=== PATIENT | male | born 1960 | race Caucasian/White ===

== ENCOUNTER → 2020-11-25 12:16 | Outpatient (CLI) | payer OTHER, SELFPAY ==
--- NOTE | ~2020-11-25 | XR_ITS ---
XR chest 2V DATE: 11/25/2020 12:29 INDICATION: Cough. Shortness of breath. TECHNIQUE: 2 views COMPARISON: 08/13/2018 PA and lateral chest FINDINGS: Heart size is normal. No hilar or mediastinal enlargement. No pulmonary infiltrate or conso lidation, pleural effusion or pulmonary vascular congestion or pneumothorax is detected. Included ske letal structures are unremarkable. IMPRESSION: No active cardiopulmonary disease Reviewed, dictated and finalized at location A.
== END ==
PROVIDERS: PCP Family Medicine; Visit Provider Family Medicine
DX: R05 Cough (principal)
CPT/HCPCS: 71046

== ENCOUNTER → 2021-07-19 10:22 | Outpatient (CLI) | payer OTHER, SELFPAY ==
--- NOTE | ~2021-07-19 | XR_ITS ---
EXAM: XR hip RT 2V w AP pelvis HISTORY: M25.559 - Pain in unspecified hip M25.559 - Pain in unspecified hip COMPARISON: None available FINDINGS: Normal mineralization. No fracture or dislocation. Mild degenerative lumbar changes. Mild enthesopathy of muscular origins off the iliac bones and ischial tuberosities. Mild bilateral superio r hip joint space narrowing and sclerosis. Subcortical cyst in the left femoral neck. IMPRESSION: Mild right hip osteoarthritis. Reviewed, dictated and finalized at location K.
== END ==
PROVIDERS: Visit Provider Physician Assistant Medical
DX: M16.11 Unilateral primary osteoarthritis, right hip (principal)
CPT/HCPCS: 73502

== ENCOUNTER → 2021-11-11 16:47 | Outpatient (CLI) | payer OTHER, SELFPAY ==
--- NOTE | ~2021-11-11 | MR_ITS ---
EXAMINATION: MR hip RT wo con DATE: 11/11/2021 17:51 INDICATION: Right hip pain TECHNIQUE: Magnetic resonance imaging (MRI) of the right hip was performed without intravenous contr ast. Sequences included full-field axial PD-weighted FS FSE and T1-weighted FSE, coronal of the pelvi s with PD-weighted FS FSE, T2-weighted FSE and T1-weighted FSE, small field of view of the right hip with axial PD-weighted FS FSE, sagittal PD-weighted FS FSE, coronal PD-weighted FS FSE and coronal T2 weighted FSE. Additional radial T1-weighted FGR oriented orthogonal to the acetabular rim were obt ained for evaluation of the labrum. COMPARISON: None FINDINGS: Bones/labrum/cartilage: Mild lower lumbar levocurvature. Alignment is otherwise normal. Partially lumbarized S1 segment with 5 more cephalad nonrib-bearing lumbar segments. Mild lower lumbar spondylosis with mild disc height l oss at L4-L5 through L5-S1. No fracture, avascular necrosis or pathologic marrow replacing process. T here is bilateral decreased anterosuperior femoral head/neck offset which can predispose towards cam- type femoral acetabular impingement. Mild cystic change at the left anterosuperior femoral head neck junction which could also be seen with impingement. There is a tear at the anterosuperior right aceta bular labrum. There is mild osteoarthritis at the right hip with nonuniform partial-thickness cartila ge loss most prominent at the anterosuperior right acetabulum where there is deep chondral fissuring with mild underlying edema-like marrow signal change. There are small marginal osteophytes along the posterior right femoral head as well as along the posterior acetabulum. Fluid: Symmetric physiologic amount of fluid within both hip joints. Soft tissues: Normal and symmetric muscle bulk and signal in the pelvis and visualized proximal thighs. The iliopso as, gluteal and proximal hamstring tendons are normal. Bilateral fat-containing inguinal hernias, lef t greater than right with small bilateral indirect components with additional small direct component on the left. Small bilateral hydroceles. Limited evaluation of visceral organs of the pelvis is unrem arkable. No pathologically enlarged pelvic/inguinal lymphadenopathy. IMPRESSION: 1. Mild right hip osteoarthritis with labral tear and high-grade chondromalacia along the anterosuper ior right acetabulum. 2. Small bilateral fat-containing indirect inguinal hernias and additional small fat-containing direc t left inguinal hernia. Reviewed, dictated and finalized at location A. IMPRESSION: 1. Mild right hip osteoarthritis with labral tear and high-grade chondromalacia along the anterosuperior right acetabulum. 2. Small bilateral fat-containing indirect inguinal hernias and additional smal l fat-containing direct left inguinal hernia.
== END ==
PROVIDERS: PCP Family Medicine; Visit Provider Nurse Practitioner Family
DX: M16.11 Unilateral primary osteoarthritis, right hip (principal)
CPT/HCPCS: 73721

== ENCOUNTER 2022-09-01 13:14 | Emergency (ER) | payer OTHER, SELFPAY ==
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
[2022-09-01 13:17] VITALS: BP 136/82; PULSE 77; RESP 16; TEMP 36.4; O2SAT 100
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
[2022-09-01] MEDS: ACETAMINOPHEN 500 MG TABLET 1000 MG PO (14:44)
[2022-09-01] MEDS: IBUPROFEN 600 MG TABLET PO (14:44)
--- NOTE | 2022-09-01 14:53 | ECG_ITS ---
Measurements Intervals [place] Rate: 73 P: 47 [place]: 155 QRS: 26 QRSD: 92 T: 9 QT: 383 QTc: 423 Interpretive Statements SINUS RHYTHM POSSIBLE LEFT ATRIAL ENLARGEMENT ST ELEVATION IN LAT/HIGH LAT LEADS- CONSIDER REPOLARIZATION ABNORMALITY BORDERLINE ECG COMPARED TO ECG 08/13/2018 16:21:12 NO SIGNIFICANT CHANGES Electronically Signed On 09-01-2022 18:30:18 CDT by Orlando Echevarria D.O.
[2022-09-01] MEDS: SODIUM CHLORIDE 0.9% IV 1,000 ML 999 ML IV CONT (15:13)
[2022-09-01 15:25] LABS: Basophils Absolute Auto 0.1 K/mm3 (0.0-0.1); Basophils Percent Auto 0.8 % (0.2-1.2); Eosinophils Absolute Auto 0.1 K/mm3 (0-0.3); Eosinophils Percent Auto 0.6 % (0-4.4); Hematocrit 50.7 % (42.0-52.0); Hemoglobin 17.3 g/dL (14.0-18.0); Immature Granulocyte Absolute 0.04 K/mm3 (0.00-0.031); Immature Granulocyte Percent A 0.4 % (0-0.5); Lymphocytes Percent Auto 18.5 % (18.3-44.2); Mean Corpuscular HGB Conc 34.1 g/dl (32-36); Mean Corpuscular Hemoglobin 30.6 pg (26-34); Mean Corpuscular Volume 89.7 fl (80-100); Mean Platelet Volume 9.3 fl (7.4-10.4); Monocytes Absolute Auto 0.7 K/mm3 (0.1-0.6); Monocytes Percent Auto 6.7 % (2.6-8.5); Neutrophils Absolute Auto 7.5 K/mm3 (1.3-6.7); Platelet Count Result 300 k/mm3 (150-375); Red Blood Count 5.65 M/mm3 (4.6-6.20); Red Cell Distribution Width 12.5 % (11.5-14.5); White Blood Count 10.3 K/mm3 (4.5-10.0)
[2022-09-01 15:32] LABS: Anion Gap 11 mmol/L (8-16); Blood Urea Nitrogen 18 mg/dL (9-20); Calcium 8.8 mg/dL (8.4-10.2); Carbon Dioxide 22 mmol/L (22-30); Chloride 102 mmol/L (98-107); Estimated Glomerular Filt Rate > 60; Glucose 184 mg/dL (65-110); Potassium 3.6 mmol/L (3.4-5.0); Sodium 135 mmol/L (137-145)
[2022-09-01 15:44] LABS: Troponin I < 0.012 ng/mL (0.000-0.034)
[2022-09-01 16:18] VITALS: BP 118/78; PULSE 84
[2022-09-01 16:22] VITALS: BP 113/96; BP 125/88; PULSE 77; PULSE 84
[2022-09-01 17:27] VITALS: BP 114/71; PULSE 84; RESP 16; O2SAT 97
== END 2022-09-01 17:28 | disposition home or self-care (01) ==
PROVIDERS: Emergency Provider Emergency Medicine; PCP Family Medicine
DX: S59.912A Unspecified injury of left forearm, initial encounter (principal); R55 Syncope and collapse; V49.40XA Driver injured in collision with unspecified motor vehicles in traffic accident, initial encounter; R94.31 Abnormal electrocardiogram [ECG] [EKG]
CPT/HCPCS: 36415; 73090; 73110; 80048; 84484; 85025; 93005; 96360; 99284; A9270; J7030

== ENCOUNTER 2022-11-03 07:36 | Outpatient (CLI) | payer OTHER, SELFPAY ==
[2022-11-03 08:31] LABS: Anion Gap 8 mmol/L (8-16); Blood Urea Nitrogen 18 mg/dL (9-20); Calcium 8.8 mg/dL (8.4-10.2); Carbon Dioxide 26 mmol/L (22-30); Chloride 104 mmol/L (98-107); Estimated Glomerular Filt Rate > 60; Glucose 136 mg/dL (65-110); Potassium 3.8 mmol/L (3.4-5.0); Sodium 138 mmol/L (137-145)
== END 2022-11-03 07:37 | disposition home or self-care (01) ==
LOC: ANHSURGERY 07:40
PROVIDERS: Anesthesiology; PCP Family Medicine; Visit Provider Surgery
DX: K40.20 Bilateral inguinal hernia, without obstruction or gangrene, not specified as recurrent (principal); E11.9 Type 2 diabetes mellitus without complications; Z01.818 Encounter for other preprocedural examination
CPT/HCPCS: 36415; 80048; 86850; 86900; 86901

== ENCOUNTER 2022-11-09 02:32 | Day surgery (SDC) | payer OTHER, SELFPAY ==
[2022-10-29 10:13] VITALS: BMI 25.1
--- NOTE | 2022-10-29 10:19 | PC.NURSE ---
Report to the Outpatient Waiting Room, entrance under the green pavilion located off [facility], at time 8:30 on date 11/09/22. Planned Procedure Time: 10:30. Time changes happen often and if your time is changed the preop area will call you the afternoon before. - You and your visitor will be asked to self-screen and do not enter if you have any COVID symptoms. - A mask is optional within the hospital at this time. Patients may have clear liquids (water, carbonated beverages, clear teas, apple juice) until 3 hours prior to surgery (7:30) with a maximum of 20 ounces. - No food from midnight until time of surgery Take the following medications with a SIP of water the morning of surgery: NONE DO NOT STOP ANY OF YOUR OTHER PRESCRIPTION MEDICATIONS PRIOR TO SURGERY ?EXCEPT THE FOLLOWING Medications to discontinue per physician: N/A Date to take last dose: N/A Please no make-up, nail argentine, hairspray, perfume, deodorant, or body powder the day of surgery. No jewelry (including any body piercings) or valuables the day of surgery, leave them at home. Please take a shower or bath the night before, or the morning of, surgery with an antibacterial soap (HIBICLENS). Wear comfortable, loose fitting clothing. - Jewelry must be removed prior to entering the operating room. Rings and piercings that are not removed may be cut off. - The hospital will not accept responsibility for valuables. - Please leave all valuables, including medications, at home the day of surgery. If you are going home after surgery, a licensed otr van cdl truck driver must drive you home. - NO public transportation without another adult if you receive anesthesia. - We recommend that an adult stay with you for 24 hours following discharge. - We also recommend that you do not drive, make important decision, drink alcoholic beverages, or take any drugs that were not prescribed by your health care provider for at least 24 hours after your discharge time. Follow any additional instructions given to you from your surgeon. If you or anyone in your household have experienced Covid symptoms in the past week, please notify your surgeon or the nurse liaison at the phone number below for possible testing. Telephone instructions given to PT - LEATHA MIRANDA and asked if any additional questions and then verbalized understanding. Patient advised to call surgeon office or pre surgery nurse liaison [phone] if any additional questions.
--- NOTE | 2022-11-06 18:50 | P.PNAN_ITS ---
Anes - Eval Pre Procedure Procedure: Operation Date: 11/09/22 10:30 Proposed Procedures p Robotic Assisted Bilateral Inguinal Hernia Repair with Mesh - Merna Padron MD Date/Time: 11/06/22 18:50 Pre Op Diagnosis: bilateral Inguinal Hernia Patient Data Age: 62 Gender: M Height: 1.83 m Weight: 83.95 kg Allergies Allergy/AdvReac Type Severity Reaction Status Date / Time No Known Allergies Allergy Verified 10/29/22 10:12 Home Medications Medication Instructions Recorded Confirmed Type blood sugar diagnostic (Accu-Chek #100 ea 07/28/21 10/19/22 Rx Nancy Plus test strips) blood-glucose meter (Accu-Chek #1 ea 07/28/21 10/19/22 Rx Nancy Plus Meter) lancets (Accu-Chek Softclix #100 ea 07/28/21 10/19/22 Rx Lancets) lisinopril 10 1 tablet PO DAILY #30 tabs 09/25/22 10/29/22 Rx mg-hydrochlorothiazide 12.5 mg tablet dapagliflozin propaned 5 1 tablet PO DAILY diabetes #90 ea 10/05/22 10/29/22 Rx mg-metformin ER 1,000 mg tablet, ext rel 24hr (Xigduo XR) Patient hx anesthesia problems: none Family hx anesthesia problems: none Results Review: All pre-operative results and documents have been reviewed as part of the pre- operative evaluation. [facility] Past Medical History Medical History (Updated 11/06/22 @ 18:52 by Olesya Whitaker CRNA) Arthritis BMI 25.0-25.9,adult Chronic hip pain Diabetes mellitus Gastroesophageal reflux disease HTN (hypertension) Mixed hyperlipidemia Family History Family History Father Family history of malignant neoplasm of urinary bladder Mother Heart disease Radiation injury of brain Sibling Breast cancer Other Family history of alcoholism Family history of malignant neoplasm Hypertension Social History Social History Smoking status: Current some day smoker Tobacco type: cigars Second hand tobacco smoke exposure: No Alcohol intake: current Alcohol use details: RARE Substance use: never Substance use type: does not use Lack of Transportation: No Lack of Food: Never True Current Housing: I Have Housing Concerned About Future Housing: No Difficulty Paying Gas/Electric Bills: No Difficulty Paying for Meds: No Currently Unemployed: No Education: Associate Degree Difficulty w/ Childcare or Family Care: No Living arrangements: with family Occupation/Education: occupation 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 Gender identity (if verbalized by the patient): Male Spiritual care concerns: No Exam Day of Procedure 11/06/22 18:50
[2022-11-09] VITALS (10 sets, daily range): BP systolic 105–144; BP diastolic 46–89; PULSE 76–94; RESP 12–17; TEMP 36.2–36.8; O2SAT 97–99
--- NOTE | 2022-11-09 08:28 | PM.IMHP ---
H&P: HPI History of Present Illness Date/Time: 11/09/22 08:28 Chief Complaint: bilateral inguinal hernia Narrative: Abraham is a 62 y/o male who presents to the hospital at the request of Gabrielle GOYAL for evaluation of a left inguinal hernia. Patient states he was being treated for a labral tear in his right hip. Hip MRI was performed in October 2021 and showed small bilateral fat-containing indirect inguinal hernias and additional small fat-containing direct left inguinal hernia. Patient states that since January he has noticed a bulge more on the left side. He states it is more noticeable with coughing or sneezing. Patient does wear a hernia belt for extra support when being physically active. Review of Systems Review of Systems: All systems reviewed & are unremarkable except as noted in HPI and below PMFSH Past Medical History Medical History Arthritis BMI 25.0-25.9,adult Chronic hip pain Diabetes mellitus Gastroesophageal reflux disease HTN (hypertension) Mixed hyperlipidemia Family History Family History Father Family history of malignant neoplasm of urinary bladder Mother Heart disease Radiation injury of brain Sibling Breast cancer Other Family history of alcoholism Family history of malignant neoplasm Hypertension Social History Social History Smoking status: Current some day smoker Tobacco type: cigars Second hand tobacco smoke exposure: No Alcohol intake: current Alcohol use details: RARE Substance use: never Substance use type: does not use Lack of Transportation: No Lack of Food: Never True Current Housing: I Have Housing Concerned About Future Housing: No Difficulty Paying Gas/Electric Bills: No Difficulty Paying for Meds: No Currently Unemployed: No Education: Associate Degree Difficulty w/ Childcare or Family Care: No Living arrangements: with family Occupation/Education: occupation 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 Gender identity (if verbalized by the patient): Male Spiritual care concerns: No Meds Home Medications and Allergies Home Medications Medication Instructions Recorded Confirmed Type blood sugar diagnostic (Accu-Chek #100 ea 07/28/21 10/19/22 Rx Nancy Plus test strips) blood-glucose meter (Accu-Chek #1 ea 07/28/21 10/19/22 Rx Nancy Plus Meter) lancets (Accu-Chek Softclix #100 ea 07/28/21 10/19/22 Rx Lancets) lisinopril 10 1 tablet PO DAILY #30 tabs 09/25/22 10/29/22 Rx mg-hydrochlorothiazide 12.5 mg tablet dapagliflozin propaned 5 1 tablet PO DAILY diabetes #90 ea 10/05/22 10/29/22 Rx mg-metformin ER 1,000 mg tablet, ext rel 24hr (Xigduo XR) Allergies Allergy/AdvReac Type Severity Reaction Status Date / Time No Known Allergies Allergy Verified 10/29/22 10:12 Exam Const: General: cooperative, comfortable and no acute distress Resp: Auscultation: clear to auscultation bilaterally Cardio: Rate: regular rate Rhythm: regular rhythm GI: Inspection: normal to inspection and non-distended GI Palp: Yes abdominal tenderness, Yes Soft to palpation, Yes Tenderness to palpation present (GI), No Guarding due to palpation present (GI), No Rigid due to palpation and Yes Hernia present Assessment and Plan Assessment and plan (1) Bilateral inguinal hernia: Qualifiers: Obstruction and gangrene presence: without obstruction or gangrene Recurrence: non-recurrent Qualified Code(s): K40.20 - Bilateral inguinal hernia, without obstruction or gangrene, not specified as recurrent Code(s): K40.20 - Bilateral inguinal hernia, without obstruction or gangrene, not specified as recurrent Status: Acute Assessment and Plan: pt setup for robotic assisted bilateral ing
[2022-11-09] MEDS: KETOROLAC 15 MG/ML VIAL (*BKC) IV PUSH (08:30)
--- NOTE | 2022-11-09 08:31 | WPDHPUPDATE1 ---
History and Physical Update Update Date/Time: 11/09/22 08:31 History and Physical has been reviewed, including an updated exam of the patient. There are NO changes in the patient's condition. Risks, benefits, and alternatives have been discussed and questions answered. Patient agrees to proceed with procedure.
[2022-11-09] MEDS: ACETAMINOPHEN 500 MG TABLET 1000 MG PO (09:00)
[2022-11-09] MEDS: LACTATED RINGERS 1,000 ML 30 ML IV CONT ×2 (09:00→13:11)
[2022-11-09 09:27] LABS: Glucose Point of Care 148 mg/dl (65-105)
--- NOTE | 2022-11-09 09:27 | P.PNAN_ITS ---
Anes - Eval Final PreProcedure Day of Procedure 11/09/22 09:27 Patient weight: normal Heart: regular rate and rhythm Lungs: clear to auscultation Airway: Mallampati scale class II Neurological: alert and oriented Last oral intake: >/= 8 hours ASA classification: II Emergent: no Anesthetic plan: proceed Anesthesia type and monitoring: general ETT and standard monitoring Results Review: All pre-operative results and documents have been reviewed as part of the pre- operative evaluation. Informed Consent: The patient's anesthetic plan and its attendant risks and benefits were discussed with the patient/family/POA. Questions were solicited and answers provided to the satisfaction of the patient/family/POA.
[2022-11-09] MEDS: ceFAZolin 2 GM/D5W 50 ML 2 GM/50 ML BAG IVPB (11:19)
[2022-11-09] MEDS: BUPIVACAINE/EPINEPHRINE 0.5% 50 ML VIAL 30 ML INFILTRATE (11:52)
--- NOTE | 2022-11-09 13:13 | W.PM.PROC2 ---
Procedure Note - Detailed Date of Procedure 11/09/22 Pre-op Diagnosis bilateral Inguinal Hernia Post-op Diagnosis Other (left pantaloon inguinal hernia, right indirect hernia) Procedure Performed robotic assisted bilateral inguinal hernia repair with mesh Surgeon Merna Padron MD Anesthesia General Indications Pt is a 62 y/o M presenting c few mo h/o bulging, discomfort in L groin. Pt reports recently c mild discomfort in R groin as well, but no bulging noted. Workup, including imaging, significant for bilateral inguinal hernia. Findings L pantaloon hernia, R indirect hernia Description of Procedure Patient was brought into the operating room and placed in the supine position. After adequate induction of general anesthesia, the patient was prepped and draped in normal sterile fashion. A time-out was then done to verify the patient's identity, as well as the procedure being performed. I began by making a 8 mm incision in the supraumbilical region, a Veress needle was then placed into the peritoneal cavity. CO2 gas was then insufflated and after adequate pneumoperitoneum was achieved, the Veress needle was removed. I then placed an 8 mm trocar through this incision. I then placed the endoscope through this trocar site and under direct visualization placed 2 further 8 mm ports in the right and left mid abdomen. The [employer] robot was then docked to the 3 trocar sites. I then scrubbed out and went to the robotic console. Upon examining the pelvis, it was noted that the patient had a large sized left inguinal hernia. The right side was examined and a small hernia defect was noted. I began by making a preperitoneal flap approximately 6 cm superior to the left sided defect. This flap was carried medially past the umbilical ligaments and laterally to the transversalis. It then began dissection of my medial compartment taking this down to the pubic tubercle. Upon dissection of this area, a large direct hernia was encountered. I was able to dissect and reduce this direct hernia. I then began the lateral dissection taking this down to the transversalis fascia. Once these compartments were achieved, I began dissection around the cord structures. A moderate sized indirect hernia was noted at this point. Using careful dissection, was able to reduce indirect hernia sac off the cord structures. Once this was adequately done, I went ahead and placed a large piece of 3D Max mesh into the abdominal cavity. The mesh was carefully positioned, centering the center of the mesh over the larger direct defect. Once this was done, I was very satisfied with the overlap of our repair over both defects. Using 3-0 Vicryl sutures, I tacked the mesh medially to Ishaan's ligament. Two lateral sutures were placed from the mesh to the transversalis fascia. I then began on the right side by making a preperitoneal flap approximately 6 cm superior to the right sided defect. This flap was carried medially past the umbilical ligaments and laterally to the transversalis. It then began dissection of my medial compartment taking this down to the pubic tubercle. I then began the lateral dissection taking this down to the transversalis fascia. Once these compartments were achieved, I began dissection around the cord structures. A small indirect hernia was noted at this point. Using careful dissection, was able to reduce indirect hernia sac off the cord structures. Once this was adequately done, I went ahead and placed a large piece of 3D Max mesh into the abdominal cavity. The mesh was carefully positioned, centering the center of the mesh over the indirect defect. Once this was done, was very satisfied with our repair. Using 3-0 Vicryl sutures, I tacked the mesh medially to Ishaan's ligament. Two lateral sutures were placed from the mesh to the transversalis fascia.I then closed the peritoneal flap bilaterally with running 2.0 V Lock suture x 2. The abdomen was then desufflated, and
[2022-11-09] MEDS: fentaNYL CITRATE INJ (*CRX) 100 MCG/2 ML VIAL 25 MCG IV PUSH ×2 (13:27→13:31)
[2022-11-09] MEDS: oxyCODONE HCL (*CRX) 5 MG TAB IR PO (14:17)
[2022-11-10 07:12] LABS: Glucose Point of Care 162 mg/dl (65-105)
== END 2022-11-09 16:24 | disposition home or self-care (01) ==
PROVIDERS: PCP Family Medicine; Visit Provider Surgery
PROC: 8E0Y4CZ Robotic Assisted Procedure of Lower Extremity, Percutaneous Endoscopic Approach (ICD-10-PCS; CPT 49650; principal; 2022-11-09 10:30)
DX: K40.20 Bilateral inguinal hernia, without obstruction or gangrene, not specified as recurrent (principal); G89.29 Other chronic pain; K21.9 Gastro-esophageal reflux disease without esophagitis; M25.559 Pain in unspecified hip; I10 Essential (primary) hypertension; E11.9 Type 2 diabetes mellitus without complications; E78.2 Mixed hyperlipidemia; F17.290 Nicotine dependence, other tobacco product, uncomplicated; Z80.9 Family history of malignant neoplasm, unspecified; Z79.84 Long term (current) use of oral hypoglycemic drugs
CPT/HCPCS: 49650; S2900; 36415; 80048; 82948; 86850; 86900; 86901; A9270; C1781; J0690; J1100; J1885; J2405; J2704; J2710; J3010; J7120

== ENCOUNTER 2024-03-01 10:27 | Outpatient (CLI) | payer OTHER, SELFPAY ==
--- NOTE | ~2024-03-01 | XR_ITS ---
XR shoulder RT min 2V Ordering provider: Kavya Cha NP History: . M25.519 - Pain shoulder into hand, no inj, hx surg 2017 . Comparison: None. FINDINGS: BONES: No acute fracture or dislocation. Postoperative changes seen in the area of the glenoid cavity . JOINT SPACES: The acromioclavicular joint is normal. The glenohumeral joint shows osteoarthritic zimmerman ges with cystic changes seen in the humeral head or the glenoid cavity. SOFT TISSUES: Normal. IMPRESSION: No acute osseous abnormality right shoulder. Reviewed, dictated and finalized at location A. TIONAL PSYCHOLOGIST
== END 2024-03-01 10:28 | disposition home or self-care (01) ==
PROVIDERS: PCP Family Medicine
DX: M25.511 Pain in right shoulder (principal)
CPT/HCPCS: 73030